=== PATIENT | male | born 1990 | race Two or more races ===

== ENCOUNTER 2018-07-18 19:26 | Emergency (ER) | payer BC, OTHER ==
[~2018-07-18] VITALS: Ht 185.4 cm; Wt 140.0 kg
[~2018-07-18 19:26] MED LIST: DOCU-131 PO; HYDR-3237 PO; OMEP40CA6 PO; ONDA4TAB13 SL; SUCR1TAB PO
[2018-07-18 19:38] VITALS: BP 108/58
== END 2018-07-18 21:46 | disposition home or self-care (01) ==
LOC: ED 21:36
DX: S82.831A Other fracture of upper and lower end of right fibula, initial encounter for closed fracture (principal); K21.9 Gastro-esophageal reflux disease without esophagitis; X50.1XXA Overexertion from prolonged static or awkward postures, initial encounter; Y93.64 Activity, baseball; Y92.89 Other specified places as the place of occurrence of the external cause; Y99.8 Other external cause status
CPT/HCPCS: 29515; 99283